=== PATIENT | female | born 1980 | race Caucasian/White ===

== ENCOUNTER 2018-06-13 03:54 | Emergency (ER) | payer MEDICAID, OTHER ==
[~2018-06-13] VITALS: Ht 149.9 cm; Wt 68.1 kg
[2018-06-13 03:56] VITALS: BP 127/87
[2018-06-13] MEDS ORDERED: BENZ200C48 PO (04:00)
[2018-06-13] MEDS ORDERED: FLUTICASONE (04:00)
== END 2018-06-13 04:51 | disposition home or self-care (01) ==
LOC: ED 04:50
DX: J01.00 Acute maxillary sinusitis, unspecified (principal)
CPT/HCPCS: 99283

== ENCOUNTER 2019-04-19 21:50 | Emergency (ER) | payer OTHER ==
[~2019-04-19] VITALS: Ht 149.9 cm; Wt 68.2 kg
[2019-04-20 01:41] VITALS: BP 111/57
== END 2019-04-20 01:43 | disposition home or self-care (01) ==
LOC: ED 23:59
DX: G44.219 Episodic tension-type headache, not intractable (principal); R11.2 Nausea with vomiting, unspecified; Z90.49 Acquired absence of other specified parts of digestive tract
CPT/HCPCS: 96361; 96374; 96375; 99283; J0780; J1885; J7030; Q0163

== ENCOUNTER 2020-03-12 17:49 | Emergency (ER) | payer OTHER ==
[~2020-03-12] VITALS: Ht 149.9 cm; Wt 65.6 kg
[~2020-03-12 17:49] MED LIST: BENZ200C48 PO; FLUTICASONE
[2020-03-12] MEDS ORDERED: DIPHENHYDRAMINE 50 MG/ML, 1ML IVPush ONE (18:30)
[2020-03-12] MEDS ORDERED: PROCHLORPERAZINE 5 MG/ML, 2ML IVPush ONE (18:30)
[2020-03-12] MEDS ORDERED: SODIUM CHLORIDE 0.9% 1,000ML IVBOLUS ONE (18:30)
[2020-03-12] MEDS ORDERED: ONDANSETRON 2MG/ML, 2ML IVPush ONE (18:30)
[2020-03-12] MEDS ORDERED: SODIUM CHLORIDE FLUSH 10ML SYR IVF ONE (18:30)
[2020-03-12] MEDS ORDERED: KETOROLAC 30 MG/1 ML IVPush ONE (19:00)
--- NOTE | 2020-03-12 19:00 | NUR ---
Late Entry: Bedside report from Oneil natarajan. This rn to assume care of pt. Oneil rn attempted multiple iv w/ no success. This rn to attempt. Pt vss and no immediate needs.
[2020-03-12] MEDS ORDERED: PROCHLORPERAZINE 5 MG/ML, 2ML ONE (19:47)
[2020-03-12] MEDS ORDERED: ONDANSETRON 2MG/ML, 2ML ONE (19:48)
[2020-03-12] MEDS ORDERED: KETOROLAC 30 MG/1 ML ONE (19:48)
[2020-03-12] MEDS ORDERED: DIPHENHYDRAMINE 50 MG/ML, 1ML ONE (19:48)
--- NOTE | 2020-03-12 20:10 | NUR ---
Multiple rns attempted iv access, no success. This rn established iv via us. Medicated per nov.
[2020-03-12 20:17] VITALS: BP 103/67
--- NOTE | 2020-03-12 20:30 | NUR ---
Pt states feeling better, but GILL still there. No immediate needs. WCTM.
--- NOTE | 2020-03-12 21:05 | NUR ---
Pt attempting ua at this time.
--- NOTE | 2020-03-12 21:13 | NUR ---
Ua sent to lab.
[2020-03-12 21:19] LABS: MICROSCOPIC NOT IND
== END 2020-03-12 21:51 | disposition home or self-care (01) ==
LOC: ED 18:19
DX: G43.009 Migraine without aura, not intractable, without status migrainosus (principal); Z90.49 Acquired absence of other specified parts of digestive tract
CPT/HCPCS: 81003; 96374; 96375; 99284; J0780; J1200; J1885; J2405; J7030